=== PATIENT | female | born 1950 | race Caucasian/White ===

== ENCOUNTER 2017-03-04 20:28 | Emergency (ER) | payer MEDICARE, MEDICAID ==
[~2017-03-04] VITALS: Wt 76.5 kg
[~2017-03-04 20:28] MED LIST: BUSP10TA2 PO; OMEP20CA16 PO; SERT-165 PO; SIMV20TA PO; TRAZ100T15 PO
--- NOTE | 2017-03-04 23:46 | ERA ---
ER Documentation Chief Complaint Date/Time DATE: 03/04/17 TIME: 23:45 Chief Complaint Right Flank pain HPI . The patient is a 66-year-old female, presenting with acute right flank pain intermittently for the last 5 days, denies similar symptoms previously, complains of constipation. She denies fever, chills, neck pain, chest pain, dyspnea, dysuria, she does not smoke nor drink Past medical history: Dyslipidemia, anxiety, gastritis Past surgical history: None ROS All systems reviewed and are negative except as per history of present illness. Medications Home Meds Active Scripts Tramadol HCl (Tramadol HCl) 50 Mg Tablet, 50 MG PO Q6, #15 TAB Prov:NAEL MCDONOUGH MD 03/05/17 Omeprazole* (Omeprazole*) 20 Mg Capsule.dr, 20 MG PO DAILY, #10 Prov:NAEL MCDONOUGH MD 03/30/16 Reported Medications Vitamin B Complex (Vitamin B Complex) 1 Each Capsule, 1 EACH PO, CAP 03/05/17 Multivitamins* (Theragran*) 1 Tab Tab, 1 TAB PO DAILY, TAB 03/05/17 Trazodone Hcl* (Desyrel*) 100 Mg Tab, 100 MG PO BID, #60 TAB 03/05/17 Famotidine* (Famotidine*) 20 Mg Tablet, 20 MG PO BID, #60 TAB 03/05/17 Simvastatin* (Zocor*) 20 Mg Tablet, 20 MG PO QHS, #30 TAB 03/30/16 Trazodone Hcl* (Trazodone Hcl*) 100 Mg Tablet, 200 MG PO QHS, #60 TAB 03/30/16 Sertraline Hcl* (Sertraline Hcl*) 100 Mg Tablet, 200 MG PO DAILY, #60 TAB 03/30/16 Buspirone Hcl* (Buspirone Hcl*) 10 Mg Tab, 15 MG PO TID, TAB 03/30/16 Allergies Allergies: Coded Allergies: albuterol (Unverified Allergy, Unknown, 03/05/17) aspirin (Unverified Allergy, Unknown, 03/05/17) PMhx/Soc Hx Alcohol Use: No Hx Substance Use: No Hx Tobacco Use: No Physical Exam Vitals Vital Signs Date Time Temp Pulse Resp B/P Pulse Ox O2 Delivery O2 Flow Rate FiO2 03/05/17 02:16 98.3 75 16 105/57 97 Room Air 03/04/17 20:52 98.2 96 20 139/73 98 Physical Exam Const: No acute distress. Head: Atraumatic. Eyes: Normal Conjunctiva. ENT: Normal External Ears, Nose and Mouth. Neck: Full range of motion. No meningismus. Resp: Clear to auscultation bilaterally. Cardio: Regular rate and rhythm. Abd: Soft, non distended, normal bowel sounds, Mild right flank tenderness, no right lower quadrant, epigastric, CVA tenderness Skin: No petechiae or rashes. Back: No midline or flank tenderness. Ext: No cyanosis, or edema. Neur: Awake and alert. No focal deficit Psych: Normal Mood and Affect. Result Diagram: 03/04/17234903/04/172349 Results 24 hrs Laboratory Tests Test 03/04/17 23:50 03/05/17 00:02 White Blood Count 7.110^3/ul Red Blood Count 3.9710^6/ul Hemoglobin 11.0g/dl Hematocrit 33.9% Mean Corpuscular Volume 85.4fl Mean Corpuscular Hemoglobin 27.7pg Mean Corpuscular Hemoglobin Concent 32.4g/dl Red Cell Distribution Width 13.0% Platelet Count 35534^3/UL Mean Platelet Volume 9.6fl Neutrophils % 52.6% Lymphocytes % 36.8% Monocytes % 8.2% Eosinophils % 2.0% Basophils % 0.1% Nucleated Red Blood Cells % 0.0/100WBC Neutrophils # (Manual) 3.710^3/ul Lymphocytes # 2.610^3/ul Monocytes # 0.610^3/ul Eosinophils # 0.110^3/ul Basophils # 0.010^3/ul Nucleated Red Blood Cells # 0.010^3/ul Sodium Level 138mmol/L Potassium Level 3.9mmol/L Chloride Level 102mmol/L Carbon Dioxide Level 27mmol/L Anion Gap 13 Blood Urea Nitrogen 15mg/dl Creatinine 0.73mg/dl Glucose Level 108mg/dl Calcium Level 9.8mg/dl Total Bilirubin 0.1mg/dl Direct Bilirubin 0.00mg/dl Indirect Bilirubin 0.1mg/dl Aspartate Amino Transf (AST/SGOT) 24IU/L Alanine Aminotransferase (ALT/SGPT) 36IU/L Alkaline Phosphatase 96IU/L Total Protein 7.5g/dl Albumin 4.3g/dl Globulin 3.20g/dl Albumin/Globulin Ratio 1.34 Lipase 184U/L Bedside Urine pH (LAB) 5.5 Bedside Urine Protein (LAB) Negative Bedside Urine Glucose (UA) Negative Bedside Urine Ketones (LAB) Negative Bedside Urine Blood Trace-lysed Bedside Urine Nitrite (LAB) Negative Bedside Urine Leukocyte Esterase (L Negative Current Medications Medications (Trade) Dose Ordered Sig/Renita Route PRN Reason Start Time Stop Time Status Last Admin Dose Admin Morphine Sulfate (morphine) 2 mg ONCE STAT IV 03/05/17 00:18 03/05/17 00:20 DC 03/05/17 00:24 Ondansetron HCl (Zofran Inj) 4 mg ONCE STAT IV 03/05/17 00:18 03/05/17 00:20 DC 03/05/17 00:31 Procedures/[place] [id number] Radiology Main Line: [phone] DIAGNOSTIC IMAGING REPORT Patient: BARBER LARSON : 1950 Age: 66 Sex: F MR #: [id number] DOS: 03/05/17 0018 Ordering MD: NAEL MCDONOUGH MD Location: E/R Room/Bed: PROCEDURE: CT Abdomen and Pelvis without contrast. CLINICAL INDICATION: Pain. TECHNIQUE: CT scan of the abdomen and pelvis was performed on a multidetector slice CT scanner. No intravenous contrast material was utilized. Sagittal and coronal reformatted images were obtained from the axial source images. Images were reviewed on a high-resolution PACS workstation. Exam CTDlvol = 12 mGy and DLP = 686 Gy-cm. One of the following 3 dose reduction techniques were used: Automated exposure control; adjustment of the mA and/or kV according to patient size; or use of iterative reconstruction technique. COMPARISON: None. FINDINGS: There is no obstruction or ileus. There is mild mid abdominal small bowel wall thickening. The appendix is visualized. There is no evidence for appendicitis.. There is no evidence for diverticulitis. There is no free fluid. The liver is overall normal in size. No intrahepatic lesions are identified. The gallbladder is normal in appearance. There is no definite biliary ductal dilation. Pancreas is normal in appearance. The spleen is unremarkable.. There are no adrenal masses. The aorta is normal caliber. Atherosclerotic vascular calcifications are present. Minimal right renal pelvocaliectasis. Kidneys are otherwise normal in appearance without hydronephrosis, mass or calculus.. Ureters are of normal caliber and without evidence for an obstructing calculus. The urinary bladder is partially contracted Uterus unremarkable. The ovaries are not well characterized. Limited evaluation of the lung bases demonstrates small amount of pericardial fluid or thickening. There is a 1 mm left lower lobe punctate calcification/ granuloma. There are degenerative changes of the lumbar spine. IMPRESSION: 1. Mid abdominal small bowel wall thickening suggestive of an enteritis. No obstruction or ileus. 2. Mild right renal pelvocaliectasis. No obstructing calcification. Contracted urinary bladder. 3. No evidence for diverticulitis. 4. Small amount of pericardial fluid or thickening. 5. 1 mm left lower lobe punctate calcification/granuloma requiring no specific follow-up. RPTAT: HMVK .Nael Faustin MD, Date Time Electronically viewed and signed by .Nael Faustin MD, MD on 03/05/2017 01:33 .K/ CC: NAEL MCDONOUGH MD MEDICAL MAKING DECISION: The patient is a 76-year-old female, presenting with acute right flank pain of unclear etiology. She was treated with morphine 2 mg IV for pain, Zofran 4 mg IV for nausea with good response. She is stable for outpatient follow-up The differential diagnoses considered include but are not limited to cholelithiasis, cholecystitis, cystitis, pancreatitis, hepatitis, gastritis, peptic ulcer disease, gastric ulcer, appendicitis, diverticulitis, cholangitis, choledocholithiasis, partial small bowel obstruction. Departure Diagnosis: Primary Impression: Abdominal pain Additional Impression: Anemia Condition: Good Comments She was discharged with Ultram I discussed the findings with the patient. I advised the patient to follow-up with the primary physician in about 1-2 days, sooner if needed and return if any concern. The patient's blood pressure was elevated (>120/80) but appears stable without evidence of hypertension emergency or urgency. The patient was counseled about the risks of hypertension and urged to pursue outpatient monitoring and therapy within a week with their primary care physician. NAEL MCDONOUGH MD Mar 04, 2017 23:46
[2017-03-04 23:55] LABS: URINE BLOOD (Dip) POC Trace-lysed (NEGATIVE)
[2017-03-05] MEDS ORDERED: morphine 2 MG INJ IV STA (00:18)
[2017-03-05] MEDS ORDERED: ONDANSETRON 4 MG INJ IV STA (00:18)
[2017-03-05 00:30] LABS: BASOPHILS % 0.1 % (0.0-2.0); EOSINOPHILS # 0.1 10^3/ul (0.0-0.5); HEMATOCRIT 33.9 % (37.0-47.0); LYMPHOCYTES # 2.6 10^3/ul (0.8-2.9); LYMPHOCYTES % 36.8 % (15.0-51.0); MEAN CORPUSCULAR HEMOGLOBIN 27.7 pg (29.0-33.0); MEAN CORPUSCULAR HGB CONC 32.4 g/dl (32.0-37.0); MEAN CORPUSCULAR VOLUME 85.4 fl (82.0-101.0); MEAN PLATELET VOLUME 9.6 fl (7.4-10.4); MONOCYTE # 0.6 10^3/ul (0.3-0.9); MONOCYTES % 8.2 % (0.0-11.0); NEUTROPHILS % 52.6 % (39.0-77.0); PLATELET COUNT 197 10^3/UL (140-415); RED BLOOD COUNT 3.97 10^6/ul (4.20-5.40); WHITE BLOOD COUNT 7.1 10^3/ul (4.8-10.8)
[2017-03-05 01:09] LABS: ALBUMIN 4.3 g/dl (3.3-4.9); ALBUMIN/GLOBULIN RATIO 1.34; BILIRUBIN,INDIRECT 0.1 mg/dl (0-1.1); BILIRUBIN,TOTAL 0.1 mg/dl (0.2-1.3); CALCIUM 9.8 mg/dl (8.4-10.2); CREATININE 0.73 mg/dl (0.44-1.00); POTASSIUM 3.9 mmol/L (3.5-5.1); TOTAL PROTEIN 7.5 g/dl (6.1-8.1)
--- NOTE | 2017-03-05 01:33 | RADRPT ---
PROCEDURE: CT Abdomen and Pelvis without contrast. CLINICAL INDICATION: Pain. TECHNIQUE: CT scan of the abdomen and pelvis was performed on a multidetector slice CT scanner. No intravenous contrast material was utilized. Sagittal and coronal reformatted images were obtained fr om the axial source images. Images were reviewed on a high-resolution PACS workstation. Exam CTDlvol = 12 mGy and DLP = 686 Gy-cm. One of the following 3 dose reduction techniques were used: Automated exposure control; adjustment of the mA and/or kV according to patient size; or use of iterative rec onstruction technique. COMPARISON: None. FINDINGS: There is no obstruction or ileus. There is mild mid abdominal small bowel wall thickening. The appen ramila is visualized. There is no evidence for appendicitis.. There is no evidence for diverticulitis. There is no free fluid. The liver is overall normal in size. No intrahepatic lesions are identified. The gallbladder is norm al in appearance. There is no definite biliary ductal dilation. Pancreas is normal in appearance. Th e spleen is unremarkable.. There are no adrenal masses. The aorta is normal caliber. Atheroscleroti c vascular calcifications are present. Minimal right renal pelvocaliectasis. Kidneys are otherwise normal in appearance without hydronephro sis, mass or calculus.. Ureters are of normal caliber and without evidence for an obstructing calcul us. The urinary bladder is partially contracted Uterus unremarkable. The ovaries are not well characterized. Limited evaluation of the lung bases demonstrates small amount of pericardial fluid or thickening. T here is a 1 mm left lower lobe punctate calcification/granuloma. There are degenerative changes of the lumbar spine. IMPRESSION: 1. Mid abdominal small bowel wall thickening suggestive of an enteritis. No obstruction or ileus. 2. Mild right renal pelvocaliectasis. No obstructing calcification. Contracted urinary bladder. 3. No evidence for diverticulitis. 4. Small amount of pericardial fluid or thickening. 5. 1 mm left lower lobe punctate calcification/granuloma requiring no specific follow-up. RPTAT: HMVK .Nael Faustin MD, MD Date Time Electronically viewed and signed by .Nael Faustin MD, on 03/05/2017 01:33 .K/
[2017-03-05] MEDS ORDERED: FAMO20TA18 PO (01:46)
[2017-03-05] MEDS ORDERED: TRAZ100T15 PO (01:46)
[2017-03-05] MEDS ORDERED: MULTI PO (01:48)
[2017-03-05] MEDS ORDERED: VITA1CAP PO (01:51)
[2017-03-05 02:16] VITALS: BP 105/57; PULSE 75; RESP 16; TEMP 98.3
[2017-03-05] MEDS ORDERED: TRAM50TA2 PO (02:33)
== END 2017-03-05 02:42 | disposition home or self-care (01) ==
LOC: E/R 20:28
DX: R10.9 Unspecified abdominal pain (principal); D64.9 Anemia, unspecified; R40.2142 Coma scale, eyes open, spontaneous, at arrival to emergency department; R40.2252 Coma scale, best verbal response, oriented, at arrival to emergency department; R40.2362 Coma scale, best motor response, obeys commands, at arrival to emergency department
CPT/HCPCS: 36415; 74176; 80053; 81003; 83690; 85025; 96374; 96375; 99285; J2270; J2405

== ENCOUNTER 2017-12-15 20:47 | Emergency (ER) | END 2017-12-16 03:26 | disposition home or self-care (01) ==

== ENCOUNTER 2019-01-22 03:49 | Emergency (ER) | payer MEDICARE, OTHER ==
[~2019-01-22] VITALS: Ht 162.6 cm; Wt 71.7 kg
[~2019-01-22 03:49] MED LIST changes: +FAMO20TA18 PO; +TRA100 PO; +TRAM50TA2 PO; +TRAZ-150 PO; -TRAZ100T15 PO; +ZOF8 PO
[2019-01-22 03:54] VITALS: Ht 162.6 cm; Wt 71.7 kg
[2019-01-22] MEDS ORDERED: morphine 4 MG/ML VIAL IV STA (04:08)
[2019-01-22] MEDS ORDERED: ONDANSETRON 4 MG INJ IV STA (04:08)
[2019-01-22] MEDS ORDERED: SOD CHLORIDE 0.9% 500 ML IV STA (04:08)
--- NOTE | 2019-01-22 04:11 | ERD ---
ER Documentation Chief Complaint Chief Complaint right upper abdominal pain x 3 days HPI Translation services were utilized during this patient's encounter Language: German Source: Video 68-year-old female who presents to the emergency room complaining of several hours of right upper quadrant abdominal pain radiating to the scapula. The pain is moderate to severe, occasionally postprandial. Symptoms on and off for several weeks if not longer but worse over the past several days. She denies any chest pain or chest pressure, no pleuritic pain, no fevers chills or cough. ROS All systems reviewed and are negative except as per history of present illness. Medications Home Meds Active Scripts Metronidazole* (Flagyl*) 500 Mg Tablet, 500 MG PO TID for 7 Days, TAB Prov:DESI LOPES MD 01/22/19 Ciprofloxacin Hcl* (Ciprofloxacin Hcl*) 500 Mg Tablet, 500 MG PO BID for 7 Days, TAB Prov:DESI LOPES MD 01/22/19 Ondansetron Hcl* (Zofran*) 8 Mg Tab, 8 MG PO Q6H PRN for NAUSEA AND OR VOMITING, #20 TAB Prov:INDIGO STEVENSON MD 12/16/17 Omeprazole* (Omeprazole*) 20 Mg Capsule.dr, 20 MG PO DAILY, #30 Prov:INDIGO STEVENSON MD 12/16/17 Tramadol HCl (Tramadol HCl) 50 Mg Tablet, 50 MG PO Q6, #15 TAB Prov:ROBIN MCDONOUGH MD 03/05/17 Omeprazole* (Omeprazole*) 20 Mg Capsule.dr, 20 MG PO DAILY, #10 Prov:ROBIN MCDONOUGH MD 03/30/16 Reported Medications Trazodone Hcl* (Desyrel*) 100 Mg Tab, 100 MG PO BID, #60 TAB 03/05/17 Famotidine* (Famotidine*) 20 Mg Tablet, 20 MG PO BID, #60 TAB 03/05/17 Simvastatin* (Zocor*) 20 Mg Tablet, 20 MG PO QHS, #30 TAB 03/30/16 Trazodone Hcl* (Trazodone Hcl*) 100 Mg Tablet, 200 MG PO QHS, #60 TAB 03/30/16 Sertraline Hcl* (Sertraline Hcl*) 100 Mg Tablet, 200 MG PO DAILY, #60 TAB 03/30/16 Buspirone Hcl* (Buspirone Hcl*) 10 Mg Tab, 15 MG PO TID, TAB 03/30/16 Allergies Allergies: Coded Allergies: albuterol (Unverified Allergy, Unknown, 03/05/17) aspirin (Unverified Allergy, Unknown, 03/05/17) PMhx/Soc History of Surgery: No Anesthesia Reaction: No Hx Neurological Disorder: No Hx Respiratory Disorders: No Hx Cardiac Disorders: Yes (Hyperlipidemia) Hx Psychiatric Problems: No Hx Miscellaneous Medical Probl: Yes (Gastritis) Hx Alcohol Use: No Hx Substance Use: No Hx Tobacco Use: No FmHx Family History: No diabetes Physical Exam Vitals Vital Signs Date Temp Pulse Resp B/P (MAP) Pulse Ox O2 O2 Flow FiO2 Time Delivery Rate 01/22/19 98.0 75 18 117/59 97 03:54 (78) Physical Exam General: Uncomfortable Head: Normocephalic, atraumatic. Eyes: Pupils equally reactive, EOM intact ENT: Moist mucous membranes Neck: Supple, no lymphadenopathy Respiratory: Lungs clear bilaterally, no distress Cardiovascular: RRR, no murmurs, rubs, or gallops Abdominal: Soft, focal tenderness of the right upper quadrant with soft Major sign, negative tenderness to McBurney's point, no peritonitis : Deferred MSK: No edema, no unilateral swelling, 5/5 strength Neurologic: Alert and oriented, moving all extremities, normal speech, no focal weakness, no cerebellar signs Skin: No rash Psych: Normal mood Result Diagram: 01/22/19 0450 01/22/19 0450 Results 24 hrs Laboratory Tests Test 01/22/19 04:50 White Blood Count 5.9 10^3/ul Red Blood Count 3.87 10^6/ul Hemoglobin 10.9 g/dl Hematocrit 33.0 % Mean Corpuscular Volume 85.3 fl Mean Corpuscular Hemoglobin 28.2 pg Mean Corpuscular Hemoglobin Concent 33.0 g/dl Red Cell Distribution Width 12.8 % Platelet Count 186 10^3/UL Mean Platelet Volume 9.4 fl Immature Granulocytes % 0.200 % Neutrophils % 56.7 % Lymphocytes % 32.0 % Monocytes % 8.9 % Eosinophils % 1.9 % Basophils % 0.3 % Nucleated Red Blood Cells % 0.0 /100WBC Immature Granulocytes # 0.010 10^3/ul Neutrophils # 3.4 10^3/ul Lymphocytes # 1.9 10^3/ul Monocytes # 0.5 10^3/ul Eosinophils # 0.1 10^3/ul Basophils # 0.0 10^3/ul Nucleated Red Blood Cells # 0.0 10^3/ul Sodium Level 142 mmol/L Potassium Level 3.7 mmol/L Chloride Level 106 mmol/L Carbon Dioxide Level 27 mmol/L Anion Gap 9 Blood Urea Nitrogen 12 mg/dl Creatinine 0.61 mg/dl Est Glomerular Filtrat Rate mL/min > 60 mL/min Glucose Level 117 mg/dl Calcium Level 9.5 mg/dl Total Bilirubin 0.4 mg/dl Direct Bilirubin 0.00 mg/dl Indirect Bilirubin 0.4 mg/dl Aspartate Amino Transf (AST/SGOT) 30 IU/L Alanine Aminotransferase (ALT/SGPT) 36 IU/L Alkaline Phosphatase 76 IU/L Total Protein 7.5 g/dl Albumin 4.1 g/dl Globulin 3.40 g/dl Albumin/Globulin Ratio 1.20 Lipase 103 U/L Current Medications Medications Dose Sig/Renita Start Time Status Last (Trade) Ordered Route PRN Stop Time Admin Dose Reason Admin Sodium 500 ml @ Q1H STAT 01/22/19 DC 01/22/19 Chloride 500 mls/hr IV 04:08 04:56 01/22/19 05:07 Morphine 4 mg ONCE STAT 01/22/19 DC 01/22/19 Sulfate IV 04:08 05:00 (morphine) 01/22/19 04:09 Ondansetron 4 mg ONCE STAT 01/22/19 DC 01/22/19 HCl (Zofran IV 04:08 04:56 Inj) 01/22/19 04:09 Famotidine 20 mg ONCE STAT 01/22/19 DC (Pepcid) PO 04:55 01/22/19 04:56 40 ml ONCE STAT 01/22/19 DC Miscellaneous PO 04:55 Medication 01/22/19 04:56 (Gi Cocktail (2)) 500 mg ONCE ONCE 01/22/19 Ciprofloxacin PO 06:00 (Cipro) 01/22/19 06:01 500 mg ONCE ONCE 01/22/19 Metronidazole PO 06:00 (Flagyl) 01/22/19 06:01 Procedures/MDM EKG, MONITORS, & DIAGNOSTIC IMAGING: EKG: I reviewed and interpreted a 12-lead EKG. Rhythm: Normal sinus rhythm ST Changes: No contiguous ST segment elevations T waves: No contiguous T wave inversions Impression: No evidence of acute cardiac ischemia Ultrasound gallbladder No acute process CT abdomen and pelvis IMPRESSION: Subtle fat stranding posteriorly in the right lower quadrant adjacent to a cecal diverticulum for which the possibility of very early or mild cecal diverticulitis is not excluded. This could be correlated clinically with site of symptomatology. There is no evidence of intestinal obstruction or appendicitis, free air or abscess seen. Nonspecific trace right pleural effusion is noted. Additional findings as above. RPTAT: HSAF LAB INTERPRETATION: I reviewed the laboratory testing and it shows no evidence of acute process MEDICAL DECISION MAKING: Clinical exam history and presentation are very consistent with hepatobiliary process likely biliary colic versus early acute cholecystitis. Very low clinical concern for cardiac etiology though screening EKG would be reasonable. Low concern for acute appendicitis or alternative acute intraabdominal process. I do not believe CT imaging of the abdomen pelvis is necessary at this time. No signs or symptoms concerning for cardiopulmonary process or pulmonary embolism or pneumothorax. ER COURSE: * The patient's gallbladder ultrasound is unrevealing. Given the patient's location and severity of pain CT imaging was ordered. * CT does correlate with possible area of diverticulitis to the right colon. This would explain the patient's symptoms and location. Patient was given oral Cipro and Flagyl, tolerated this nicely. I believe an outpatient trial of oral antibiotics would be reasonable. No evidence of complications. Return precautions were discussed and understood. CONSULTATION: None DISPOSITION PLAN: The patient does not have an identifiable emergent medical condition that warrants inpatient hospitalization at this time. The patient is deemed safe for discharge with outpatient follow-up. We discussed follow up with the patient's primary care doctor within 24 to 48 hours as needed. We also discussed return to the emergency room for worsening symptoms or worsening condition. Outpatient referral: None required Discharge Medications: Cipro, Flagyl Departure Diagnosis: Primary Impression: Diverticulitis Additional Impression: Abdominal pain Abdominal location: right upper quadrant Qualified Codes: R10.11 - Right upper quadrant pain Condition: Stable DESI LOPES MD Jan 22, 2019 04:11
[2019-01-22] MEDS ORDERED: LIDOCAINE/MYLANTA 40 ML BTL PO STA (04:55)
[2019-01-22] MEDS ORDERED: FAMOTIDINE 20 MG TAB PO STA (04:55)
[2019-01-22] MEDS ORDERED: CIPR500T4 PO (05:41)
[2019-01-22] MEDS ORDERED: METR500T PO (05:41)
[2019-01-22 05:55] VITALS: BP 104/55; PULSE 64; RESP 17
[2019-01-22] MEDS ORDERED: metroNIDAZOLE 500 MG TAB PO ONE (06:00)
[2019-01-22] MEDS ORDERED: CIPROFLOXACIN 500 MG TAB PO ONE (06:00)
== END 2019-01-22 06:15 | disposition home or self-care (01) ==
LOC: E/R 03:49
DX: K57.32 Diverticulitis of large intestine without perforation or abscess without bleeding (principal); R40.2142 Coma scale, eyes open, spontaneous, at arrival to emergency department; R40.2362 Coma scale, best motor response, obeys commands, at arrival to emergency department; R40.2252 Coma scale, best verbal response, oriented, at arrival to emergency department
CPT/HCPCS: 74176; 76705; 80053; 83690; 85025; 93005; J2270; J2405; J7040; 36415; 96374; 96375

== ENCOUNTER 2019-03-14 22:15 | Emergency (ER) | payer MEDICARE, OTHER ==
[~2019-03-14] VITALS: Ht 162.6 cm; Wt 71.8 kg
[~2019-03-14 22:15] MED LIST changes: +BUSP15TA3 PO; +CIPR500T4 PO; +IBUP-1542 PO; +METR500T PO; +OMEG-135 PO; -OMEP20CA16 PO; +OMEP20CA17 PO; +POLY17PO6 PO; +QUET25TA33 PO
[2019-03-14 23:12] VITALS: Ht 162.6 cm; Wt 71.8 kg
[2019-03-15] MEDS ORDERED: KETOROLAC 30 MG INJ IV STA (03:04)
[2019-03-15 03:38] VITALS: BP 112/61; PULSE 68; RESP 16
== END 2019-03-15 03:38 | disposition home or self-care (01) ==
LOC: E/R 22:15
DX: D64.9 Anemia, unspecified (principal); R07.2 Precordial pain
CPT/HCPCS: 36415; 70450; 71045; 80048; 81003; 84484; 85025; 93005; 96374; 99285; J1885